=== PATIENT | female | born 2000 | race Asian ===

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

== ENCOUNTER 2023-01-17 21:55 | Emergency (ER) | payer OTHER ==
[~2023-01-17] VITALS: Ht 157.5 cm; Wt 54.0 kg
[~2023-01-17 21:55] MED LIST changes: +ALBU18HF12 IH; -ALBU8HFA IH
[2023-01-17 22:02] VITALS: TEMP 98.5
[2023-01-17 22:20] VITALS: BP 113/57; PULSE 71; RESP 20
[2023-01-17] MEDS ORDERED: HYDROGEN PEROXIDE 118 ML SOLUTION TP ONE (22:30)
== END 2023-01-17 23:15 | disposition home or self-care (01) ==
LOC: EMS 21:56
DX: H61.21 Impacted cerumen, right ear (principal); J45.909 Unspecified asthma, uncomplicated
CPT/HCPCS: 99282; Z7502; Z7610